=== PATIENT | female | born 1940 | race Caucasian/White ===

== ENCOUNTER 2017-04-26 23:03 | Observation (INO) | payer MEDICARE ==
[2017-04-27] MEDS ORDERED: INSULIN GLARGINE,HUM.REC.ANLOG 1,000 UNIT/10 ML UNIT SUBCUT ONE (00:42)
[2017-04-27] MEDS ORDERED: INSULIN REG, HUMAN 100 UNIT/ML 3 ML VIAL (PYX) IV ONE (00:42)
[2017-04-27] MEDS ORDERED: NORMAL SALINE 1000 ML 1,000 ML IV ONE ×2 (00:44→03:38)
--- NOTE | 2017-04-27 01:08 | ER Document Report ---
ED General - General Chief Complaint: Hip Injury Stated Complaint: FALL/HIP PAIN Time Seen by Provider: 04/27/17 00:25 Mode of Arrival: Medic Information source: Patient TRAVEL OUTSIDE OF THE [place] IN LAST 30 DAYS: No - HPI Notes: Patient is a pleasant 77-year-old white female history of chronic atrial fibrillation on Coumadin presents emergency department with report that she has a history of vertigo and gets dizzy when she stands at times, but this time she stood up holding her dog felt dizzy and then fell over injuring her right hip and left knee where she has contusions over both. The patient denies any focal weakness or numbness. The patient reports no headache or head injury or neck pain or significant back pain. The patient reports no chest pain or difficulty breathing. No other musculoskeletal injury. No recent medication changes. The patient is a insulin-dependent diabetic, but frequently does not take her NovoLog insulin or check her blood sugars. Blood sugar was 508 today. - Related Data Allergies/Adverse Reactions: No Known Allergies Allergy (Verified 09/07/14 07:00) Past Medical History - General Information source: Patient - Social History Smoking Status: Never Smoker Frequency of alcohol use: None Drug Abuse: None Lives with: Alone Family History: Reviewed & Not Pertinent - Past Medical History Cardiac Medical History: Reports: Hx Atrial Fibrillation Endocrine Medical History: Reports: Hx Diabetes Mellitus Type 1 Review of Systems - Review of Systems Notes: REVIEW OF SYSTEMS: CONSTITUTIONAL : Denies fever, chills, or sweats. Denies recent illness. EENT: Denies eye, ear, throat, or mouth pain or symptoms. Denies nasal or sinus congestion or discharge. Denies throat, tongue, or mouth swelling or difficulty swallowing. CARDIOVASCULAR: Denies chest pain. Denies palpitations or racing or irregular heart beat. Denies ankle edema. RESPIRATORY: Denies cough, cold, or chest congestion. Denies shortness of breath, difficulty breathing, or wheezing. GASTROINTESTINAL: Denies abdominal pain or distention. Denies nausea, vomiting , or diarrhea. Denies blood in vomitus, stools, or per rectum. Denies black, tarry stools. Denies constipation. GENITOURINARY: Denies difficulty urinating, painful urination, burning, frequency, blood in urine, or discharge. FEMALE GENITOURINARY: Denies vaginal bleeding, heavy or abnormal periods, irregular periods. Denies vaginal discharge or odor. MUSCULOSKELETAL: Denies back or neck pain or stiffness. SKIN: Denies rash, lesions or sores. HEMATOLOGIC : Reports easy bruising chronically. LYMPHATIC: Denies swollen, enlarged glands. NEUROLOGICAL: Denies confusion or altered mental status. Denies passing out or loss of consciousness. Reports occasional episodes of denies dizziness or lightheadedness. Denies headache. Denies weakness or paralysis or loss of use of either side. Reports occasional difficulty with gait. Denies sensory loss, numbness, or tingling. Denies seizures. PSYCHIATRIC: Denies anxiety or stress. Denies depression, suicidal ideation, or homicidal ideation. ALL OTHER SYSTEMS REVIEWED AND NEGATIVE. Dictation was performed using [employer] voice recognition software Physical Exam - Vital signs Vitals: Temp Pulse Resp BP Pulse Ox 98.0 F 85 16 129/55 H 95 04/27/17 00:20 04/27/17 00:20 04/27/17 00:20 04/27/17 00:20 04/27/17 00:20 - Notes Notes: PHYSICAL EXAMINATION: GENERAL: Well-appearing, well-nourished and in no acute distress. HEAD: Atraumatic, normocephalic. EYES: Pupils equal round and reactive to light, extraocular movements intact, conjunctiva are normal. ENT: Nares patent, oropharynx clear without exudates. Moist mucous membranes. NECK: Normal range of motion, supple without lymphadenopathy. No carotid bruits. LUNGS: Breath sounds clear to auscultation bilaterally and equal. No wheezes rales or rhonchi. HEART: Regular rate, irregular rate consistent with chronic atrial fibrillation , rate 90 with 1/6 systolic ejection murmur best auscultated over the apex. ABDOMEN: Soft, nontender, nondistended abdomen. No guarding, no rebound. No masses appreciated. Patient does have contusions to the abdomen from insulin shots previously. No evidence for cellulitis. Female : deferred Musculoskeletal: Normal range of motion. No cyanosis. Trace bilateral lower extremity edema. Patient has pain and contusion 5 x 8 cm noted on the right posterior hip but has a good range of motion and is distally neurovascularly intact. Patient has a contusion along the medial left distal knee, but has a good range of motion and ligamentous structures are intact. Distally she has good sensation and capillary refill and pulses. NEUROLOGICAL: Cranial nerves grossly intact. Normal speech, normal gait. Normal sensory, motor exams PSYCH: Normal mood, normal affect. SKIN: Warm, Dry, normal turgor, no rashes or lesions noted. Course - Re-evaluation Re-evalutation: 04/27/17 01:21 Ice pack placed upon the patient's right posterior hip region. Patient was given 10 units of IV regular insulin and her regular dose of Lantus 50 units that she takes in the evening. Patient was offered medication for pain but she politely refused. She had previously received 4 of Zofran and 25 mcg of fentanyl while in route to the emergency department. Patient and her family were counseled at length about the need to take her insulin regularly and monitor blood sugars closely. 04/27/17 07:10 Patient was given 2 L of normal saline to correct her dehydration and mild acidosis. Blood pressure remained stable, and patient requested to go home. Patient was advised she needed to stay. Patient had orthostatics which showed a diastolic drop of almost 20 points although the systolic remained stable in the pulse did not have significant change. Patient was observed going in and out of atrial fibrillation but her heart rate would not go over 110 when she was in atrial fibrillation and the blood pressure remained stable. After patient's attempted ambulating she felt lightheaded and finally agreed to admission. Patient did not have significant difficulty ambulating regarding her joint contusions. 04/27/17 07:11 Urine culture taken. Patient given 1 dose of Keflex for possible urinary tract infection. Repeat exam showed the hematoma on the right lateral hip region had only gotten slightly larger. Discussion was undertaken with Dr. Paniagua who accepted the patient for admission to observation status. 04/27/17 07:12 No evidence suggestive for anemia or significant renal insufficiency. It is thought that if the patient was compliant with her regular insulin dosing and blood sugar management, that would help to prevent the dehydration which appears to have led to her orthostatic intolerance. No evidence for sepsis or SIRS or suggestion for CVA, and I do question the patient's report of a vertigo history. 04/27/17 07:15 - Vital Signs Vital signs: Temp Pulse Resp BP Pulse Ox 98.0 F 85 15 125/81 96 04/27/17 00:20 04/27/17 00:20 04/27/17 06:00 04/27/17 05:01 04/27/17 06:01 - Laboratory Result Diagrams: 04/27/17 00:56 04/27/17 00:56 Laboratory results interpreted by me: 04/27/17 04/27/17 04/27/17 00:56 00:56 00:56 WBC 11.8 H Plt Count 107 L PT 31.4 H Carbon Dioxide 19 L Glucose 434 H* POC Glucose Magnesium 1.5 L Direct Bilirubin 0.6 H AST 76 H ALT 58 H Albumin 3.4 L Urine Glucose (UA) Urine Ketones Urine Blood Ur Leukocyte Esterase 04/27/17 04/27/17 04/27/17 02:50 03:09 05:51 WBC Plt Count PT Carbon Dioxide Glucose POC Glucose 306 H 253 H Magnesium Direct Bilirubin AST ALT Albumin Urine Glucose (UA) >=1000 H Urine Ketones 25 H Urine Blood SMALL H Ur Leukocyte Esterase TRACE H - EKG Interpretation by Me EKG shows normal: Sinus rhythm Additional EKG results interpreted by me: 04/27/17 02:06 EKG as interpreted by me showed normal sinus rhythm heart rate of 91 no gross evidence for acute IL or ischemia identified. There is no significant change from previous EKG reviewed from 06/18/15. Critical Care Note - Critical Care Note Total time excluding time spent on procedures (mins): 46 Discharge - Discharge Clinical Impression: Near syncope, Dehydration, Medical non-compliance, Hyperglycemia Urinary tract infection Qualifiers: Urinary tract infection type: site unspecified Hematuria presence: without hematuria Qualified Code(s): N39.0 - Urinary tract infection, site not specified Contusion Qualifiers: Encounter type: initial encounter Contusion area: hip Laterality: right Qualified Code(s): S70.01XA - Contusion of right hip, initial encounter Clinical Impression: (Ruled Out): Diabetic ketoacidosis Condition: Stable Disposition: ADMITTED OBSERVATION Admitting Provider: Hospitalist Unit Admitted: Telemetry
[2017-04-27 01:18] LABS: ABSOLUTE BASOPHILS # (AUTO) 0.1 10^3/uL (0.0-0.2); ABSOLUTE EOSINOPHILS # (AUTO) 0.2 10^3/uL (0.0-0.6); ABSOLUTE LYMPHOCYTES (AUTO) 2.7 10^3/uL (0.5-4.7); ABSOLUTE MONOCYTES (AUTO) 1.2 10^3/uL (0.1-1.4); ABSOLUTE NEUT (AUTO) 7.7 10^3/uL (1.7-8.2); BASOPHILS % (AUTO) 0.7 % (0-2); EOSINOPHILS % (AUTO) 1.3 % (0-6); HEMATOCRIT 40.2 % (36.0-47.0); HEMOGLOBIN 13.2 g/dL (12.0-15.5); HGB HCT DIFFERENCE -0.6; LYMPHOCYTES % (AUTO) 22.5 % (13-45); MEAN CORPUSCULAR HEMOGLOBIN 30.9 pg (27.0-33.4); MEAN CORPUSCULAR HGB CONC 32.9 g/dL (32.0-36.0); MEAN CORPUSCULAR VOLUME 94 fl (80-97); MONOCYTES % (AUTO) 10.5 % (3-13); PROTHROMBIN TIME 31.4 SEC (11.4-15.4); RED BLOOD COUNT 4.28 10^6/uL (3.72-5.28); RED CELL DISTRIBUTION WIDTH 12.7 % (11.5-14.0); WHITE BLOOD COUNT 11.8 10^3/uL (4.0-10.5)
[2017-04-27 01:46] LABS: ALANINE AMINOTRANSFERASE 58 U/L (9-52); ALBUMIN 3.4 g/dL (3.5-5.0); ALKALINE PHOSPHATASE 118 U/L (38-126); ANION GAP 17 (5-19); ASPARTATE AMINO TRANSFERASE 76 U/L (14-36); BILIRUBIN,DIRECT 0.6 mg/dL (0.0-0.4); BILIRUBIN,TOTAL 0.7 mg/dL (0.2-1.3); BLOOD UREA NITROGEN 16 mg/dL (7-20); CALCIUM 8.5 mg/dL (8.4-10.2); CARBON DIOXIDE 19 mmol/L (22-30); CHLORIDE 101 mmol/L (98-107); DIGOXIN 1.08 ng/mL (0.8-2.0); MAGNESIUM 1.5 mg/dL (1.6-2.3); TOTAL PROTEIN 6.6 g/dL (6.3-8.2)
[2017-04-27 01:51] LABS: GLUCOSE 434 mg/dL (75-110)
--- NOTE | 2017-04-27 02:02 | RADIOLOGY REPORT (SQ) ---
EXAM DESCRIPTION: HIP RIGHT AP/LATERAL COMPLETED DATE/TIME: 04/27/2017 1:52 am REASON FOR STUDY: fall with pain COMPARISON: None. NUMBER OF VIEWS: Two views. TECHNIQUE: AP pelvis and additional frog-leg view of the right hip. LIMITATIONS: None. FINDINGS: MINERALIZATION: Normal. RIGHT HIP: No fracture or dislocation. No worrisome bone lesions. Mild primary osteoarthritis. LEFT HIP: No fracture or dislocation. No worrisome bone lesions. Mild primary osteoarthritis. PUBIS AND ISCHIUM: No fracture. PELVIS: No fracture. SACRUM: No fracture or dislocation. No worrisome bone lesions. LOWER LUMBAR SPINE: Vpyl-ag-[id number] disc desiccation and spondylosis. SOFT TISSUES: No findings. OTHER: No other significant finding. IMPRESSION: No acute defect. [id number]-tr-[id number] osteoarthritis. TECHNICAL DOCUMENTATION: JOB ID: [id number] [employer]- All Rights Reserved
--- NOTE | 2017-04-27 02:03 | RADIOLOGY REPORT (SQ) ---
EXAM DESCRIPTION: KNEE LEFT 2 VIEWS COMPLETED DATE/TIME: 04/27/2017 1:52 am REASON FOR STUDY: fall with pain COMPARISON: None. NUMBER OF VIEWS: Two views. TECHNIQUE: AP and lateral radiographic images acquired of the left knee. LIMITATIONS: None. FINDINGS: MINERALIZATION: Normal. BONES: Mild osteoarthritis of the medial compartment. Small hypertrophy of the tibial spines. Small superior patellar enthesophyte. JOINT: No effusion. SOFT TISSUES: No soft tissue swelling. No radio-opaque foreign body. OTHER: Atherosclerosis. IMPRESSION: NO RADIOGRAPHIC EVIDENCE OF ACUTE INJURY. TECHNICAL DOCUMENTATION: JOB ID: [id number]- All Rights Reserved
[2017-04-27 03:37] LABS: APPEARANCE,URINE CLEAR
[2017-04-27 03:38] LABS: BILIRUBIN,URINE NEGATIVE (NEGATIVE); GLUCOSE, URINE >=1000 mg/dL (NEGATIVE); KETONES,URINE 25 mg/dL (NEGATIVE); LEUKOCYTE ESTERASE,URINE TRACE (NEGATIVE); NITRITE,URINE NEGATIVE (NEGATIVE); PROTEIN,URINE NEGATIVE (NEGATIVE); URINE SPECIFIC GRAVITY 1.022; UROBILINOGEN,URINE NEGATIVE mg/dL (<2.0)
[2017-04-27 03:40] LABS: BACTERIA,URINE TRACE /HPF
[2017-04-27] MEDS ORDERED: CEPHALEXIN 500 MG CAPSULE PO ONE (04:57)
[2017-04-27] MEDS ORDERED: MAGNESIUM HYDROXIDE SUSP 30 ML UDCUP PO PRN (06:15)
[2017-04-27] MEDS ORDERED: IPRATROPIUM/ALBUTEROL 0.5-2.5 MG/3 ML AMPUL NEB PRN (06:15)
[2017-04-27] MEDS ORDERED: NORMAL SALINE 1000 ML 1,000 ML IV SCH (06:15)
[2017-04-27] MEDS ORDERED: GLUCAGON,HUMAN RECOMB 1 MG INJ IM PRN (06:19)
[2017-04-27] MEDS ORDERED: DEXTROSE 50%-WATER 25 GM/50 ML DISP.SYRIN IV PRN ×2 (06:19)
[2017-04-27] MEDS ORDERED: DEXTROSE 40% GEL 15 GM TUBE PO PRN ×2 (06:19)
--- NOTE | 2017-04-27 07:25 | PDOC H&P ---
History of Present Illness Admission Date/PCP: 04/27/17 06:15 Patient complains of: Dizziness with fall History of Present Illness: MITRA COX is a 77 year old female with a past medical history of atrial fibrillation on Coumadin, insulin-dependent diabetes and dyslipidemia who was in her usual state of health until last 3 days having episodes of dizziness upon standing. She denies palpitations or tachycardia but does not regularly check her blood pressure or blood sugar. She denies recent changes in her medications or running out she denies chest pain nausea vomiting or shortness of breath. In the emergency room she is found to have A. fib with RVR in the 120s, a large right thigh hematoma, Diabetic ketoacidosis And persistent orthostatic hypotension and referred to the hospitalist for admission. Past Medical History Cardiac Medical History: Reports: Atrial Fibrillation, Hyperlipidema, Hypertension Endocrine Medical History: Reports: Diabetes Mellitus Type 1 Social History Information Source: Patient Lives with: Alone Smoking Status: Never Smoker Drugs: None - Advance Directive Resuscitation Status: Full Code Family History Family History: Hypertension Parental Family History Reviewed: Yes Children Family History Reviewed: Yes Sibling(s) Family History Reviewed.: Yes Medication/Allergy Home Medications: Digoxin [Lanoxin 0.125 mg Tablet] 0.125 mg PO DAILY 09/07/14 Diltiazem HCl [Diltiazem 24Hr Cd] 180 mg PO DAILY 09/07/14 Insulin Detemir [Levemir Insulin 100 units/mL] 50 unit SUBCUT QHS 09/07/14 Insulin Regular, Human [Humulin R (Reg) Insulin 100 unit/mL] 0 unit SUBCUT .SLD SCALE 09/07/14 Meclizine HCl [Antivert 25 mg Tablet] 25 mg PO TID PRN #21 tablet 09/07/14 Ondansetron [Zofran Odt 4 mg Tablet] 1 tab PO Q6H #15 tab.rapdis 09/07/14 Simvastatin 20 mg PO QHS 09/07/14 Warfarin Sodium 2 mg PO ASDIR 09/07/14 Warfarin Sodium 4 mg PO ASDIR 09/07/14 Cephalexin Monohydrate [Keflex 500 mg Capsule] 500 mg PO QID #20 capsule Allergies/Adverse Reactions: No Known Allergies Allergy (Verified 09/07/14 07:00) Review of Systems Constitutional: PRESENT: fatigue, weakness. ABSENT: anorexia, fever(s), headache(s), night sweats Eyes: ABSENT: visual disturbances Ears: ABSENT: hearing changes Cardiovascular: ABSENT: chest pain, dyspnea on exertion, edema, orthropnea, palpitations Respiratory: ABSENT: cough, hemoptysis Gastrointestinal: ABSENT: abdominal pain, constipation, diarrhea, hematemesis, hematochezia, nausea, vomiting Genitourinary: ABSENT: dysuria, hematuria Musculoskeletal: ABSENT: joint swelling Integumentary: ABSENT: rash, wounds Neurological: ABSENT: abnormal gait, abnormal speech, confusion, dizziness, focal weakness, syncope Psychiatric: PRESENT: as per HPI Endocrine: PRESENT: polydipsia, polyuria Hematologic/Lymphatic: ABSENT: easy bleeding, easy bruising Physical Exam Vital Signs: Temp Pulse Resp BP Pulse Ox 98.0 F 85 15 125/81 96 04/27/17 00:20 04/27/17 00:20 04/27/17 06:00 04/27/17 05:01 04/27/17 06:01 General appearance: PRESENT: no acute distress, cooperative, well-developed, well-nourished Head exam: PRESENT: atraumatic, normocephalic Eye exam: PRESENT: conjunctiva pink, EOMI, PERRLA. ABSENT: scleral icterus Ear exam: PRESENT: normal external ear exam Mouth exam: PRESENT: moist, tongue midline Neck exam: ABSENT: carotid bruit, JVD, lymphadenopathy, thyromegaly Respiratory exam: PRESENT: clear to auscultation gaston. ABSENT: rales, rhonchi, wheezes Cardiovascular exam: PRESENT: irregular rhythm, +S1, +S2 Pulses: PRESENT: normal dorsalis pedis pul Vascular exam: PRESENT: normal capillary refill GI/Abdominal exam: PRESENT: normal bowel sounds, soft. ABSENT: distended, guarding, mass, organolmegaly, rebound, tenderness Rectal exam: PRESENT: deferred Extremities exam: PRESENT: full ROM, other - Large 20 x 24 cm hematoma to the upper lateral right thigh. ABSENT: calf tenderness, clubbing, pedal edema Neurological exam: PRESENT: alert, awake, oriented to person, oriented to place , oriented to time, oriented to situation, CN II-XII grossly intact. ABSENT: motor sensory deficit Psychiatric exam: PRESENT: appropriate affect, normal mood. ABSENT: homicidal ideation, suicidal ideation Skin exam: PRESENT: dry, intact, warm. ABSENT: cyanosis, rash Results Impressions: Hip/Pelvis X-Ray 04/27/17 00:43 IMPRESSION: No acute defect. Vprq-xw-luanggto osteoarthritis. Knee X-Ray 04/27/17 00:43 IMPRESSION: NO RADIOGRAPHIC EVIDENCE OF ACUTE INJURY. Assessment & Plan - Diagnosis (1) Afib Qualifiers: Atrial fibrillation type: paroxysmal Qualified Code(s): I48.0 - Paroxysmal atrial fibrillation Is this a current diagnosis for this admission?: YesPlan: Chronic problem uncontrolled likely contributing to fall continue Coumadin optimize diltiazem reevaluation of orthostasis. (2) DKA (diabetic ketoacidoses) Is this a current diagnosis for this admission?: YesPlan: Complicated by unclear compliance obtain glycosylated hemoglobin, chemistry every 6 hours home regiment insulin with sliding scale and education (3) Orthostasis Is this a current diagnosis for this admission?: YesPlan: Likely secondary to atrial fibrillation, optimize heart rate and reevaluate orthostatic blood pressures every 4 hours with physical therapy evaluation (4) Contusion Qualifiers: Encounter type: initial encounter Contusion area: hip Laterality: right Qualified Code(s): S70.01XA - Contusion of right hip, initial encounter Is this a current diagnosis for this admission?: YesPlan: Large right upper lateral thigh hematoma complicated by anticoagulation and orthostasis. Monitor for fever or compartment syndrome otherwise symptomatic management. - Time Time Spent: 50 to 70 Minutes
[2017-04-27 07:29] LABS: ANION GAP 11 (5-19); BLOOD UREA NITROGEN 13 mg/dL (7-20); CARBON DIOXIDE 26 mmol/L (22-30); CHLORIDE 104 mmol/L (98-107); CREATININE RESULT 0.75 mg/dL (0.52-1.25); GLUCOSE 259 mg/dL (75-110); MAGNESIUM 1.4 mg/dL (1.6-2.3); POTASSIUM 4.2 mmol/L (3.6-5.0)
[2017-04-27] MEDS ORDERED: DILTIAZEM HCL 60 MG TABLET PO ONE (08:30)
[2017-04-27] MEDS: ACETAMINOPHEN 325 MG TABLET PO PRN (08:43)
[2017-04-27] MEDS: DILTIAZEM HCL 180 MG CAPSULE.CR PO SCH (09:34)
[2017-04-27] MEDS: DOCUSATE SODIUM 100 MG CAPSULE PO SCH ×2 (10:00→17:08)
[2017-04-27] MEDS ORDERED: (PENDING PHARMACY ID) (Diltiazem Hcl [Diltiazem 24hr Cd] 180 MG) PO SCH (10:00)
--- NOTE | 2017-04-27 11:01 | EKG REPORT ---
SEVERITY:- ABNORMAL ECG - SINUS RHYTHM PROBABLE LVH WITH SECONDARY REPOL ABNRM : Confirmed by: Linda Momin MD 27-Apr-2017 11:00:25
[2017-04-27] MEDS: INSULIN LISPRO 100 UNIT/ML 3 ML VIAL SUBCUT PRN ×2 (11:34→16:22)
--- NOTE | 2017-04-27 13:30 | PDOC PROGRESS REPORT ---
Subjective Progress Note for:: 04/27/17 Subjective:: This is a follow-up visit for Lionel varghese with RVR. Patient was admitted early this morning by my partner please see his note for details. The patient says she has not slept yet because she is just getting to her room. She has no chest pain or shortness of breath. She has some soreness over the right hip where she fell and injured herself. Physical Exam Vital Signs: Temp Pulse Resp BP Pulse Ox 98.3 F 77 16 132/52 H 95 04/27/17 11:19 04/27/17 11:19 04/27/17 11:19 04/27/17 11:19 04/27/17 11:19 Intake & Output 04/26/17 04/27/17 04/28/17 06:59 06:59 06:59 Weight 63.503 kg Physical exam: General: This is a well-developed well-nourished appearing white female resting in bed currently in no acute distress Heart: Regular rate and rhythm 2/6 systolic ejection murmur best heard over the left upper sternal border. No rubs or gallops Lungs: Clear to auscultation bilaterally with equal rise and fall of chest Extremities: Clubbing cyanosis or edema. Skin: Has a large hematoma on the right hip. Ecchymosis is present. Results Laboratory Results: 04/27/17 06:58 04/27/17 06:58 Sodium 141.0 Potassium 4.2 Chloride 104 Carbon Dioxide 26 Anion Gap 11 BUN 13 Creatinine 0.75 Est GFR ( Amer) > 60 Est GFR (Non-Af Amer) > 60 Glucose 259 H Calcium 8.0 L Magnesium 1.4 L Impressions: Hip/Pelvis X-Ray 04/27/17 00:43 IMPRESSION: No acute defect. Gmqm-ha-lpdumfos osteoarthritis. Knee X-Ray 04/27/17 00:43 IMPRESSION: NO RADIOGRAPHIC EVIDENCE OF ACUTE INJURY. Assessment & Plan - Diagnosis (1) Diabetes Plan: Controlled diabetes mellitus. Hemoglobin A1c is 12. His current regimen for now. We will wait 24 hours obtain multiple data points before we adjust her insulin. (2) Fall Plan: States that she became dizzy and fell. She did not trip over anything. Physical therapy to evaluate (3) Afib Qualifiers: Atrial fibrillation type: paroxysmal Qualified Code(s): I48.0 - Paroxysmal atrial fibrillation Is this a current diagnosis for this admission?: YesPlan: Currently under control. The patient had RVR on admission. (4) Orthostasis Is this a current diagnosis for this admission?: YesPlan: Resolved (5) Hematoma Plan: This is due to injury from fall. Symptomatic treatment. - Time Time Spent with patient: 15-24 minutes - Inpatient Certification Medical Necessity: Need Close Monitoring Due to Risk of Patient Decompensation
[2017-04-27] MEDS ORDERED: INSULIN DETEMIR 100 UNIT/ML 3 ML PEN SUBCUT SCH (22:00)
[2017-04-28 06:26] LABS: ABSOLUTE EOSINOPHILS # (AUTO) 0.2 10^3/uL (0.0-0.6); ABSOLUTE LYMPHOCYTES (AUTO) 3.8 10^3/uL (0.5-4.7); ABSOLUTE NEUT (AUTO) 4.1 10^3/uL (1.7-8.2); BASOPHILS % (AUTO) 0.5 % (0-2); EOSINOPHILS % (AUTO) 2.6 % (0-6); HEMATOCRIT 32.6 % (36.0-47.0); HGB HCT DIFFERENCE 0.4; LYMPHOCYTES % (AUTO) 41.5 % (13-45); MEAN CORPUSCULAR HEMOGLOBIN 31.5 pg (27.0-33.4); MEAN CORPUSCULAR HGB CONC 33.8 g/dL (32.0-36.0); MEAN CORPUSCULAR VOLUME 93 fl (80-97); MONOCYTES % (AUTO) 10.8 % (3-13); RED BLOOD COUNT 3.51 10^6/uL (3.72-5.28); RED CELL DISTRIBUTION WIDTH 12.8 % (11.5-14.0); SEGMENTED NEUTROPHILS % (AUTO) 44.6 % (42-78); WHITE BLOOD COUNT 9.1 10^3/uL (4.0-10.5)
[2017-04-28] MEDS: INSULIN LISPRO 100 UNIT/ML 3 ML VIAL SUBCUT PRN ×3 (08:23→17:13)
[2017-04-28] MEDS: ACETAMINOPHEN 325 MG TABLET PO PRN ×3 (08:23→22:54)
[2017-04-28] MEDS: INSULIN REG, HUMAN 100 UNIT/ML 3 ML VIAL (PYX) SUBCUT SCH ×3 (10:22→17:13)
[2017-04-28] MEDS: DILTIAZEM HCL 180 MG CAPSULE.CR PO SCH (10:35)
[2017-04-28] MEDS: DOCUSATE SODIUM 100 MG CAPSULE PO SCH ×2 (10:43→17:13)
[2017-04-28] MEDS ORDERED: (PENDING PHARMACY ID) (Diltiazem Hcl [Diltiazem 24hr Cd] 180 MG) PO SCH (12:45)
--- NOTE | 2017-04-28 12:50 | PDOC DISCHARGE SUMMARY ---
General - Admit/Disc Date/PCP Admission Date/Primary Care Provider: 04/27/17 06:15 Discharge Date: 04/28/17 - Discharge Diagnosis (1) Diabetes Summary: Uncontrolled diabetes mellitus. The patient did not have DKA. Patient's insulin was adjusted so that her subcu nightly insulin is now 55 units and 5 units of mealtime insulin were added on current regimen. She is to follow-up with her primary care physician. (2) Fall Summary: Possibly due transient uncontrolled atrial fibrillation versus medications. While she was here in the hospital, her heart rate was controlled and she experienced no adverse effects with resumption of her usual medications. She ambulated with PT and was not dizzy or SOB. FU with pcp. (3) Afib Is this a current diagnosis for this admission?: YesSummary: Controlled now. Continue home medications (4) Orthostasis Is this a current diagnosis for this admission?: YesSummary: Resolved. (5) Hematoma Summary: Supportive of care. Continue tylenol for discomfort (6) Urinary tract infection Summary: Culture with multiple jordan. Not a good specimen. The patient neither clinically nor objectively had a UTI. - Additional Information Resuscitation Status: Full Code Home Medications: Citalopram Hydrobromide [Celexa 20 mg Tablet] 20 mg PO DAILY 04/27/17 Digoxin [Lanoxin 0.125 mg Tablet] 0.125 mg PO DAILY 04/27/17 Diltiazem HCl [Diltiazem 24Hr Cd] 180 mg PO DAILY 04/27/17 Ergocalciferol (Vitamin D2) [Vitamin D2] 50,000 unit PO HATHAWAY@1000 04/27/17 Levothyroxine Sodium [Synthroid 0.05 mg Tablet] 0.05 mg PO [id number] 04/27/17 Metformin HCl [Glucophage] 500 mg PO BID 04/27/17 Ranitidine HCl [Zantac 150 mg Tablet] 150 mg PO BID 04/27/17 Simvastatin [Zocor 20 mg Tablet] 20 mg PO QHS 04/27/17 Warfarin Sodium [Coumadin 4 mg Tablet] 2 mg PO TUTHSA@1000 04/27/17 Warfarin Sodium [Coumadin 4 mg Tablet] 4 mg PO SUMOWEFR@1000 04/27/17 Insulin Detemir [Levemir Insulin 100 units/mL] 55 unit SUBCUT QHS insuln.pen Insulin Regular, Human [Humulin R (Reg) Insulin 100 unit/mL] 5 unit SUBCUT AC unit 04/29/17 Tramadol HCl 50 mg PO Q4HP PRN #15 tablet 04/29/17 History of Present Illness History of Present Illness: HPI as per admitting physician History of Present Illness Admission Date/PCP: 04/27/17 06:15 Patient complains of: Dizziness with fall History of Present Illness: MITRA COX is a 77 year old female with a past medical history of atrial fibrillation on Coumadin, insulin-dependent diabetes and dyslipidemia who was in her usual state of health until last 3 days having episodes of dizziness upon standing. She denies palpitations or tachycardia but does not regularly check her blood pressure or blood sugar. She denies recent changes in her medications or running out she denies chest pain nausea vomiting or shortness of breath. In the emergency room she is found to have A. fib with RVR in the 120s, a large right thigh hematoma, Diabetic ketoacidosis And persistent orthostatic hypotension and referred to the hospitalist for admission. Hospital Course Hospital Course: Patient was brought into the hospital and overall did well. She complains of pain of her right hip. This was secondary to large hematoma. This morning she is doing well. No current episodes of RVR. She was off of her home medications for the first night due to suspicion of fall from medications. These were resumed after taking over her care. The patient did well and did not have any further episodes of rvr with pulses remaining in the 70/80s. She ambulated with Physical Therapy and did well without dizziness. Follow-up with her primary care physician. Physical Exam Vital Signs: Temp Pulse Resp BP Pulse Ox 98.2 F 82 17 114/48 L 96 04/28/17 07:16 04/28/17 07:16 04/28/17 07:16 04/28/17 07:16 04/28/17 07:16 Intake & Output 04/27/17 04/28/17 04/29/17 06:59 06:59 06:59 Intake Total 780 Output Total 1700 Balance -920 Weight 33.5 kg Physical exam: General: This is a well-developed well-nourished appearing white female resting in bed currently in no acute distress Heart: Regular rate and rhythm 2/6 systolic ejection murmur best heard over the left upper sternal border. No rubs or gallops Lungs: Clear to auscultation bilaterally with equal rise and fall of chest Extremities: Clubbing cyanosis or edema. Neuro: Awake and Alert Skin: Has a large hematoma on the right hip. Ecchymosis is present. Results Laboratory Results: 04/28/17 05:52 04/27/17 06:58 04/28/17 05:52 WBC 9.1 RBC 3.51 L Hgb 11.0 L D Hct 32.6 L MCV 93 MCH 31.5 MCHC 33.8 RDW 12.8 Plt Count 96 L Seg Neutrophils % 44.6 Lymphocytes % 41.5 Monocytes % 10.8 Eosinophils % 2.6 Basophils % 0.5 Absolute Neutrophils 4.1 Absolute Lymphocytes 3.8 Absolute Monocytes 1.0 Absolute Eosinophils 0.2 Absolute Basophils 0.0 Impressions: Hip/Pelvis X-Ray 04/27/17 00:43 IMPRESSION: No acute defect. Fhar-gk-qieakzeo osteoarthritis. Knee X-Ray 04/27/17 00:43 IMPRESSION: NO RADIOGRAPHIC EVIDENCE OF ACUTE INJURY. Qualifiers PATEINT BEING DISCHARGED WITH ANY OF THE FOLLOWING DIAGNOSIS?: No Plan Time Spent: Less than 30 Minutes
[2017-04-28] MEDS ORDERED: DIGOXIN 0.125 MG TABLET PO ONE (13:45)
[2017-04-28] MEDS: FAMOTIDINE 20 MG TABLET PO SCH (17:13)
[2017-04-28] MEDS: METFORMIN HCL 500 MG TABLET PO SCH (17:13)
[2017-04-28] MEDS ORDERED: (PENDING PHARMACY ID) (Ranitidine Hcl [Zantac 150 Mg Tablet] 150 MG) PO SCH (18:00)
[2017-04-28] MEDS ORDERED: SIMVASTATIN 10 MG TABLET PO SCH (22:00)
[2017-04-28] MEDS ORDERED: INSULIN DETEMIR 100 UNIT/ML 3 ML PEN SUBCUT SCH (22:00)
[2017-04-29] MEDS: ACETAMINOPHEN 325 MG TABLET PO PRN ×2 (04:52→08:58)
[2017-04-29] MEDS ORDERED: LEVOTHYROXINE SODIUM 0.05 MG TABLET PO SCH (08:00)
[2017-04-29] MEDS: INSULIN REG, HUMAN 100 UNIT/ML 3 ML VIAL (PYX) SUBCUT SCH ×2 (08:23→11:42)
[2017-04-29] MEDS: INSULIN LISPRO 100 UNIT/ML 3 ML VIAL SUBCUT PRN ×2 (08:23→11:42)
[2017-04-29] MEDS: METFORMIN HCL 500 MG TABLET PO SCH (09:02)
[2017-04-29] MEDS: FAMOTIDINE 20 MG TABLET PO SCH (09:02)
[2017-04-29] MEDS: DILTIAZEM HCL 180 MG CAPSULE.CR PO SCH (09:03)
[2017-04-29] MEDS: DOCUSATE SODIUM 100 MG CAPSULE PO SCH (09:03)
[2017-04-29] MEDS ORDERED: DILTIAZEM HCL 180 MG CAPSULE.CR PO SCH (10:00)
[2017-04-29] MEDS ORDERED: DIGOXIN 0.125 MG TABLET PO SCH (10:00)
[2017-04-29] MEDS ORDERED: CITALOPRAM HYDROBROMIDE 20 MG TABLET PO SCH (10:00)
[2017-04-29] MEDS ORDERED: TRAMADOL HCL 50 MG TABLET PO ONE (11:00)
--- NOTE | 2017-04-29 11:05 | PDOC PROGRESS REPORT ---
Subjective Progress Note for:: 04/29/17 Subjective:: This is a follow-up visit for Lionel varghese with [facility]. The patient currently has no complaints. She is ready for discharge. Please see D/C summary from yesterday for details of her stay. Physical Exam Vital Signs: Temp Pulse Resp BP Pulse Ox 98.4 F 91 16 147/62 H 98 04/29/17 08:34 04/29/17 08:34 04/29/17 08:34 04/29/17 08:34 04/29/17 08:34 Intake & Output 04/28/17 04/29/17 04/30/17 06:59 06:59 06:59 Intake Total 780 1558 100 Output Total 1700 1600 150 Balance -920 -42 -50 Weight 33.5 kg 64.3 kg Physical exam: General: This is a well-developed well-nourished appearing white female resting in bed currently in no acute distress Heart: Regular rate and rhythm 2/6 systolic ejection murmur best heard over the left upper sternal border. No rubs or gallops Lungs: Clear to auscultation bilaterally with equal rise and fall of chest Extremities: Clubbing cyanosis or edema. Neuro: Awake and Alert Results Laboratory Results: 04/28/17 05:52 04/27/17 06:58 Impressions: Hip/Pelvis X-Ray 04/27/17 00:43 IMPRESSION: No acute defect. [id number] osteoarthritis. Knee X-Ray 04/27/17 00:43 IMPRESSION: NO RADIOGRAPHIC EVIDENCE OF ACUTE INJURY. Assessment & Plan - Diagnosis (3) Afib Qualifiers: Atrial fibrillation type: paroxysmal Qualified Code(s): I48.0 - Paroxysmal atrial fibrillation Is this a current diagnosis for this admission?: Yes (4) Orthostasis Is this a current diagnosis for this admission?: Yes (6) Urinary tract infection Qualifiers: Urinary tract infection type: site unspecified Hematuria presence: without hematuria Qualified Code(s): N39.0 - Urinary tract infection, site not specified - Time Time Spent with patient: Discharge diagnoses and medications as per discharge summary done yesterday. Please see that note for details Time Spent with patient: 15-24 minutes
[2017-04-29 12:05] VITALS: BP 161/59
== END 2017-04-29 13:08 | disposition home or self-care (01) ==
LOC: ER 23:03 → EH 04-27 06:15 → UNDOADMOB 04-27 06:30 → 4S 04-27 07:59
PROVIDERS: ADMIT Internal Medicine; ATTEND Internal Medicine
DX: E10.65 Type 1 diabetes mellitus with hyperglycemia (principal); I48.2 Chronic atrial fibrillation; I95.1 Orthostatic hypotension; W19.XXXA Unspecified fall, initial encounter; S70.11XA Contusion of right thigh, initial encounter; R60.0 Localized edema; S80.02XA Contusion of left knee, initial encounter; S70.01XA Contusion of right hip, initial encounter; E86.0 Dehydration; E87.2 Acidosis; E78.5 Hyperlipidemia, unspecified; I10 Essential (primary) hypertension; Z91.14 Patient's other noncompliance with medication regimen; Z79.01 Long term (current) use of anticoagulants; Z79.4 Long term (current) use of insulin; Z79.899 Other long term (current) drug therapy; Z82.49 Family history of ischemic heart disease and other diseases of the circulatory system
CPT/HCPCS: 93005; 99285; 36415 ×2; 87086; 82962 ×3; 80162; 83735; 85025 ×2; 85610; 80048; 80053; 81001; 83036; 73502; 73560; 93010; 97163; G0378 ×4; A9270 ×28; J7030; G8978; G8979; J1815

== ENCOUNTER 2017-12-03 09:08 | Emergency (ER) | payer MEDICARE ==
--- NOTE | 2017-12-03 10:16 | ER Document Report ---
ED Medical Screen (RME) - General Chief Complaint: Flank Pain Stated Complaint: SIDE PAIN Time Seen by Provider: 12/03/17 10:12 Notes: Patient states she fell approximately 2 weeks ago and landed on her tailbone. She states approximately 1 week after that she began to have severe right sided hip pain. She states it is worse with movement. She is on a blood thinner secondary to A. fib. TRAVEL OUTSIDE OF THE [place] IN LAST 30 DAYS: No - Related Data Allergies/Adverse Reactions: No Known Allergies Allergy (Verified 09/07/14 07:00) Past Medical History - Social History Chew tobacco use (# tins/day): No Frequency of alcohol use: None Drug Abuse: None - Past Medical History Cardiac Medical History: Reports: Hx Atrial Fibrillation, Hx Hypercholesterolemia, Hx Hypertension Endocrine Medical History: Reports: Hx Diabetes Mellitus Type 1 Renal/ Medical History: Denies: Hx Peritoneal Dialysis Physical Exam - Vital signs Vitals: Temp Pulse Resp BP Pulse Ox 98.5 F 81 14 146/64 H 98 12/03/17 09:40 12/03/17 09:40 12/03/17 09:40 12/03/17 09:40 12/03/17 09:40 Course - Vital Signs Vital signs: Temp Pulse Resp BP Pulse Ox 98.5 F 81 14 146/64 H 98 12/03/17 09:40 12/03/17 09:40 12/03/17 09:40 12/03/17 09:40 12/03/17 09:40
[2017-12-03 10:43] LABS: ABSOLUTE BASOPHILS # (AUTO) 0.1 10^3/uL (0.0-0.2); ABSOLUTE EOSINOPHILS # (AUTO) 0.2 10^3/uL (0.0-0.6); ABSOLUTE LYMPHOCYTES (AUTO) 2.7 10^3/uL (0.5-4.7); ABSOLUTE MONOCYTES (AUTO) 0.9 10^3/uL (0.1-1.4); ABSOLUTE NEUT (AUTO) 5.8 10^3/uL (1.7-8.2); BASOPHILS % (AUTO) 0.7 % (0-2); EOSINOPHILS % (AUTO) 2.1 % (0-6); HEMATOCRIT 44.1 % (36.0-47.0); MEAN CORPUSCULAR HGB CONC 34.1 g/dL (32.0-36.0); MEAN CORPUSCULAR VOLUME 91 fl (80-97); PLATELET COUNT 140 10^3/uL (150-450); RED BLOOD COUNT 4.85 10^6/uL (3.72-5.28); RED CELL DISTRIBUTION WIDTH 12.1 % (11.5-14.0); SEGMENTED NEUTROPHILS % (AUTO) 60.2 % (42-78); TOTAL CELLS COUNTED % (AUTO) 100 %; WHITE BLOOD COUNT 9.7 10^3/uL (4.0-10.5)
[2017-12-03 10:50] LABS: INTERNATIONAL RATION (INR) 2.05; PROTHROMBIN TIME 24.2 SEC (11.4-15.4)
[2017-12-03 10:55] LABS: ANION GAP 15 (5-19); BLOOD UREA NITROGEN 13 mg/dL (7-20); CALCIUM 9.7 mg/dL (8.4-10.2); CARBON DIOXIDE 28 mmol/L (22-30); CHLORIDE 97 mmol/L (98-107); GLUCOSE 366 mg/dL (75-110); POTASSIUM 4.2 mmol/L (3.6-5.0); SODIUM 140.1 mmol/L (137-145)
--- NOTE | 2017-12-03 10:58 | RADIOLOGY REPORT (SQ) ---
EXAM DESCRIPTION: HIP RIGHT AP/LATERAL COMPLETED DATE/TIME: 12/03/2017 10:51 am REASON FOR STUDY: fall/pain COMPARISON: None. NUMBER OF VIEWS: Two views. TECHNIQUE: AP pelvis and additional frog-leg view of the right hip. LIMITATIONS: None. FINDINGS: MINERALIZATION: Normal. RIGHT HIP: No fracture or dislocation. No worrisome bone lesions. LEFT HIP: No fracture or dislocation. No worrisome bone lesions. PUBIS AND ISCHIUM: No fracture. PELVIS: No fracture. SACRUM: No fracture or dislocation. No worrisome bone lesions. LOWER LUMBAR SPINE: No fracture or dislocation. No worrisome bone lesions. No significant disc disea se. SOFT TISSUES: No findings. OTHER: No other significant finding. IMPRESSION: NO RADIOGRAPHIC EVIDENCE OF ACUTE INJURY. TECHNICAL DOCUMENTATION: JOB ID: [id number] [employer]- All Rights Reserved
--- NOTE | 2017-12-03 10:59 | RADIOLOGY REPORT (SQ) ---
EXAM DESCRIPTION: SACRUM AND COCCYX COMPLETED DATE/TIME: 12/03/2017 10:51 am REASON FOR STUDY: fall/pain COMPARISON: None. NUMBER OF VIEWS: Three views. TECHNIQUE: AP, lateral, and tilt views of the sacrum and coccyx. LIMITATIONS: None. FINDINGS: MINERALIZATION: Normal. BONES: No acute fracture or dislocation. No worrisome bone lesions. Partial visualization of grade 1 anterolisthesis of L4 on L5. SOFT TISSUES: No soft tissue swelling. No foreign body. OTHER: No other significant finding. IMPRESSION: NO FRACTURE OF THE SACRUM OR COCCYX. DEGENERATIVE CHANGES LUMBAR SPINE ABOVE. TECHNICAL DOCUMENTATION: JOB ID: [id number] [employer]- All Rights Reserved
[2017-12-03] MEDS ORDERED: LIDOCAINE 5% (700 MG) TRANSDERMAL ADH..PATCH TP ONE (11:21)
--- NOTE | 2017-12-03 11:28 | ER Document Report ---
ED Extremity Problem, Lower - General Chief Complaint: Flank Pain Stated Complaint: SIDE PAIN Time Seen by Provider: 12/03/17 10:12 Notes: The patient is a 77-year-old female, past medical history A. fib on Coumadin, presents after she slipped in her kitchen, fell and landed on her right hip and tailbone. She is having some pain, but is not going away. She is taking Tylenol without much relief of her symptoms. Patient said the pain is worse with movement. She denies hitting her head, change in bowel or bladder, large swelling, fevers, urinary symptoms, numbness, tingling or midline back pain. TRAVEL OUTSIDE OF THE [place] IN LAST 30 DAYS: No - Related Data Allergies/Adverse Reactions: No Known Allergies Allergy (Verified 09/07/14 07:00) Past Medical History - General Information source: Patient - Social History Smoking Status: Never Smoker Chew tobacco use (# tins/day): No Frequency of alcohol use: None Drug Abuse: None Family History: Hypertension Patient has suicidal ideation: No Patient has homicidal ideation: No - Past Medical History Cardiac Medical History: Reports: Hx Atrial Fibrillation, Hx Hypercholesterolemia, Hx Hypertension Endocrine Medical History: Reports: Hx Diabetes Mellitus Type 1 Renal/ Medical History: Denies: Hx Peritoneal Dialysis Review of Systems - Review of Systems Notes: REVIEW OF SYSTEMS: CONSTITUTIONAL: -fevers, -chills EENT: -eye pain, -difficulty swallowing, -nasal congestion CARDIOVASCULAR: -chest pain, -syncope. RESPIRATORY: -cough, -SOB GASTROINTESTINAL: -abdominal pain, -nausea, -vomiting, -diarrhea GENITOURINARY: -dysuria, -hematuria MUSCULOSKELETAL: +right hip pain, +tailbone pain, -neck pain SKIN: -rash or skin lesions. HEMATOLOGIC: -easy bruising or bleeding. LYMPHATIC: -swollen, enlarged glands. NEUROLOGICAL: -altered mental status or loss of consciousness, -headache, - neurologic symptoms PSYCHIATRIC: -anxiety, -depression. ALL OTHER SYSTEMS REVIEWED AND NEGATIVE. Physical Exam - Vital signs Vitals: Temp Pulse Resp BP Pulse Ox 98.5 F 81 14 146/64 H 98 12/03/17 09:40 12/03/17 09:40 12/03/17 09:40 12/03/17 09:40 12/03/17 09:40 - Notes Notes: PHYSICAL EXAMINATION: GENERAL: Well-appearing, well-nourished and in no acute distress. HEAD: Atraumatic, normocephalic. EYES: Pupils equal round and reactive to light, extraocular movements intact, sclera anicteric, conjunctiva are normal. ENT: nares patent, oropharynx clear without exudates. Moist mucous membranes. NECK: Normal range of motion, supple without lymphadenopathy LUNGS: Breath sounds clear to auscultation bilaterally and equal. No wheezes rales or rhonchi. HEART: Regular rate and rhythm without murmurs ABDOMEN: Soft, nontender, normoactive bowel sounds. No guarding, no rebound. No masses appreciated. EXTREMITIES: Normal range of motion, no pitting or edema. Tenderness over right lateral hip and coccyx. No ecchymosis or swelling of right hip. NEUROLOGICAL: Cranial nerves grossly intact. Normal speech, normal gait. Normal sensory and motor exams. PSYCH: Normal mood, normal affect. SKIN: Warm, Dry, normal turgor, no rashes or lesions noted. Course - Re-evaluation Re-evalutation: Patient appears well. She has tenderness over her coccyx, but her x-rays do not show any acute fractures. There are no signs of a hematoma or hemarthrosis. Blood work is unremarkable, other than hyperglycemia, which she says is normal for her. Instructed patient to use Lidoderm patches, Voltaren gel and follow-up with her primary care physician this week for a recheck of her symptoms. - Vital Signs Vital signs: Temp Pulse Resp BP Pulse Ox 98.5 F 81 14 146/64 H 98 12/03/17 09:40 12/03/17 09:40 12/03/17 09:40 12/03/17 09:40 12/03/17 09:40 - Laboratory Result Diagrams: 12/03/17 10:20 12/03/17 10:20 Laboratory results interpreted by me: 12/03/17 12/03/17 12/03/17 10:20 10:20 10:20 Plt Count 140 L PT 24.2 H Chloride 97 L Glucose 366 H - Diagnostic Test Radiology reviewed: Image reviewed, Reports reviewed Radiology results interpreted by me: Coccyx and right hip x-rays: NAD Discharge - Discharge Clinical Impression: Contusion of pelvis Qualifiers: Encounter type: initial encounter Qualified Code(s): S30.0XXA - Contusion of lower back and pelvis, initial encounter Condition: Stable Disposition: HOME, SELF-CARE Additional Instructions: Contusion Your injury has resulted in a contusion -- a crushing of the deep tissues. No injury to important structures was detected during the physician's exam. Contusions vary in the amount of pain they cause, and in the length of time required for healing. Typically, the area will become bruised, and will remain painful to touch for two or three weeks. However, most patients are back to working and playing within a few days. After the initial period of rest and cold-packs, your symptoms (together with the doctor's recommendations) will determine how rapidly you can get back to full activity. Usually this means "do what feels okay, but don't do things that hurt." If re-examination was recommended, it's important to follow up as instructed. Call the doctor or return any time if pain increases, if swelling becomes severe, if you develop numbness or weakness in an injured extremity, or if any other alarming symptoms occur. Prescriptions: Diclofenac Sodium [Voltaren] 100 gm TP Q8H PRN #100 gel..gm. PRN Reason: Lidocaine [Lidoderm 5% (700 mg) Transdermal Patch] 1 patch TP DAILY #10 adh..patch Forms: Elevated Blood Pressure
[2017-12-03 11:39] VITALS: BP 148/57
--- NOTE | 2017-12-03 17:17 | EKG REPORT ---
SEVERITY:- NORMAL ECG - SINUS RHYTHM LVH with secondary ST-T Wave changes noted : Confirmed by: Taj Mack 03-Dec-2017 17:17:21
== END 2017-12-03 11:53 | disposition home or self-care (01) ==
LOC: ER 09:08
DX: S30.0XXA Contusion of lower back and pelvis, initial encounter (principal); W01.0XXA Fall on same level from slipping, tripping and stumbling without subsequent striking against object, initial encounter; E10.65 Type 1 diabetes mellitus with hyperglycemia; I10 Essential (primary) hypertension; I48.91 Unspecified atrial fibrillation; Z79.01 Long term (current) use of anticoagulants
CPT/HCPCS: 36415; 72220; 80048; 85025; 85610; 93005; 93010; 99284

== ENCOUNTER 2018-11-03 03:41 | Emergency (ER) | payer MEDICARE ==
[2018-11-03] MEDS ORDERED: ONDANSETRON HCL INJ/PF 4 MG/2 ML SDV IV ONE ×3 (04:15→08:54)
--- NOTE | 2018-11-03 04:18 | ER Document Report ---
ED Fall <KENYA SIMONS - Last Filed: 11/03/18 05:00> - General TRAVEL OUTSIDE OF THE [place] IN LAST 30 DAYS: No <JEB BRASWELL - Last Filed: 11/03/18 07:49> - General Chief Complaint: Fall Stated Complaint: FALL Time Seen by Provider: 11/03/18 04:06 Notes: Patient is a 78-year-old female that comes to the emergency department by EMS for chief complaint of fall. Patient was at home, fell at home, called her family, family called EMS. Patient lives alone. Patient vomited in route with EMS. Unsure if patient was knocked out or not. Patient is on Coumadin, has a history of A. fib, diabetes, hypothyroidism, vertigo. Family members state that during the day she was fine, she was out about town with them and acting normally. When asked where she hurts patient states "all over". She denies chest pain, abdominal pain, or back pain when asked specifically. She denies numbness. She denies incontinence. (JEB BRASWELL) - Related data Allergies/Adverse Reactions: No Known Allergies Allergy (Verified 11/03/18 07:30) Past Medical History - General Information source: Patient, Relative, Emergency Med Personnel - Social History Smoking Status: Never Smoker Frequency of alcohol use: None Drug Abuse: None Lives with: Alone Family History: Hypertension Patient has suicidal ideation: No Patient has homicidal ideation: No - Past Medical History Cardiac Medical History: Reports: Hx Atrial Fibrillation, Hx Hypercholesterolemia, Hx Hypertension Endocrine Medical History: Reports: Hx Diabetes Mellitus Type 1 Renal/ Medical History: Denies: Hx Peritoneal Dialysis - Immunizations Immunizations up to date: Yes Hx Diphtheria, Pertussis, Tetanus Vaccination: Yes <JEB BRASWELL - Last Filed: 11/03/18 07:49> Review of Systems - Review of Systems Constitutional: No symptoms reported EENT: No symptoms reported Cardiovascular: No symptoms reported Respiratory: No symptoms reported Gastrointestinal: No symptoms reported Genitourinary: No symptoms reported Female Genitourinary: No symptoms reported Musculoskeletal: See HPI Skin: See HPI Hematologic/Lymphatic: No symptoms reported Neurological/Psychological: See HPI <JEB BRASWELL - Last Filed: 11/03/18 07:49> Physical Exam <KENYA SIMONS - Last Filed: 11/03/18 05:00> <JEB BRASWELL - Last Filed: 11/03/18 07:49> - Vital signs Vitals: Resp BP Pulse Ox 23 H 163/57 H 99 11/03/18 03:54 11/03/18 03:54 11/03/18 03:54 - Notes Notes: GENERAL: Alert but anxious. She will follow commands. HEAD: Normocephalic. Large amount of swelling to the left forehead with ecchymosis. No open wound over the head. EYES: Pupils equal, round, and reactive to light. Extraocular movements intact. ENT: Oral mucosa moist, tongue midline. Oropharynx unremarkable. Airway patent. Nares patent, no nasal septal hematoma, TM's intact. NECK: Full range of motion. Supple. Trachea midline. LUNGS: Clear to auscultation bilaterally, no wheezes, rales, or rhonchi. No respiratory distress. No tenderness over the chest wall. HEART: Regular rate and rhythm. No murmur ABDOMEN: Soft, non-tender. Non-distended. Bowel sounds present in all 4 quadrants. No signs of trauma. GENITOURINARY: No concerning external findings noted. EXTREMITIES: Moves all 4 extremities spontaneously. Ecchymosis noted over the left shoulder. Ecchymosis and small abrasion which is very superficial over the left ankle. Otherwise extremities unremarkable. Normal distal neurovascular exam. BACK: no cervical, thoracic, lumbar midline tenderness. No saddle anesthesia, normal distal neurovascular exam. NEUROLOGICAL: Alert and oriented to person and place, confused about events. Normal speech. [cranial nerves II through XII grossly intact]. PSYCH: Anxious SKIN: Warm, dry, normal turgor. No rashes or lesions noted. (JEB BRASWELL) Course - Laboratory Result Diagrams: 11/03/18 03:12 11/03/18 03:12 <KENYA SIMONS - Last Filed: 11/03/18 05:00> - Laboratory Result Diagrams: 11/03/18 03:12 11/03/18 03:12 <JBE BRASWELL - Last Filed: 11/03/18 07:49> - Re-evaluation Re-evalutation: 11/03/18 04:58 Patient initially seen by the physician's certified first assistant. He informed me the patient had a fall and the patient is on blood thinners. I reviewed the CT scan it appears patient has a subarachnoid hemorrhage versus a calcification. I have called the radiologist to asked them to read it immediately. 11/03/18 05:00 (KENYA SIMONS) 11/03/18 04:20 Patient with large left frontal hematoma, she vomited at bedside, she started babbling incoherently briefly but then returned to speaking clearly and stated that she needed to use the bathroom now. She does follow directions, she is oriented to events, place, person, family. GCS of 15. High concern for intracranial hemorrhage, sending for CAT scan now. 11/03/18 Initially concern for possible bleed versus calcification, was initiating FFP, Keppra, nicardipine drip, Dr. Simons reviewed the CAT scan, spoke with radiologist, they do not believe this is a bleed. Patient vomited again at bedside, she is more confused, she is able to tell me her location but is having trouble with other questions. She is still following commands. She is still arousable. GCS of 14. Patient became very agitated, crying, trying to get out of the bed, I did have to give her 0.5 mg of Ativan, this worked well, she is much more calm. CBC unremarkable. PT/INR shows INR of 2. Chemistry generally unremarkable, troponin is negative. EKG showing lateral inverted T waves but these are not new. Hyperglycemia without acidosis. Given insulin. Chest x-ray unremarkable. Remaining x-rays unremarkable. Updated family on the findings. Because of patient's confusion and vomiting, dizziness and falling to begin with, marked hyperglycemia, will discuss with hospitalist for admission. Suspect she is postconcussive. Discussed with Dr. Simons. 11/03/18 06:15 Patient is much more comfortable now, she is still arousable but confused. I discussed with hospitalist Dr. Newton, he will refer to day team. 11/03/18 07:[address] Haas, he does not accept, he feels patient needs to be transferred for trauma services and availability of neurosurgery. Daughter does state agreement with [facility]. I have spoken to Dr. Manzano, solutions manager for Trauma services at [facility], patient will be accepted. 11/03/18 07:48 Introduced to Carol CARTY at bedside, discussed with daughter. Patient did take her morning blood pressure dose (Cardizem). (JEB BRASWELL) - Vital Signs Vital signs: Temp Pulse Resp BP Pulse Ox 22 H 173/69 H 93 11/03/18 07:01 11/03/18 07:01 11/03/18 07:01 - Laboratory Laboratory results interpreted by me: 11/03/18 11/03/18 11/03/18 03:12 03:12 03:12 Plt Count 112 L PT 23.8 H VBG pH VBG pCO2 Glucose 451 H* POC Glucose Direct Bilirubin 0.5 H AST 93 H Alkaline Phosphatase 178 H Albumin 3.4 L Urine Protein Urine Glucose (UA) Urine Ketones Urine Blood 11/03/18 11/03/18 11/03/18 03:56 04:20 05:10 Plt Count PT VBG pH 7.48 H VBG pCO2 29.7 L Glucose POC Glucose 428 H* Direct Bilirubin AST Alkaline Phosphatase Albumin Urine Protein 30 H Urine Glucose (UA) >=500 H Urine Ketones TRACE H Urine Blood SMALL H Discharge <KENYA SIMONS - Last Filed: 11/03/18 05:00> <JEB BRAWSELL - Last Filed: 11/03/18 07:49> - Discharge Clinical Impression: Hyperglycemia Fall Qualifiers: Encounter type: initial encounter Qualified Code(s): W19.XXXA - Unspecified fall, initial encounter Head injury Qualifiers: Encounter type: initial encounter Qualified Code(s): S09.90XA - Unspecified injury of head, initial encounter Vomiting Qualifiers: Vomiting type: unspecified Vomiting Intractability: non-intractable Nausea presence: with nausea Qualified Code(s): R11.2 - Nausea with vomiting, unspecified Altered mental status Qualifiers: Altered mental status type: unspecified Qualified Code(s): R41.82 - Altered mental status, unspecified Referrals: BRICE CANNON, BILLING ASSISTANT [Primary Care Provider] - Follow up as needed
[2018-11-03 04:36] LABS: ABSOLUTE BASOPHILS # (AUTO) 0.1 10^3/uL (0.0-0.2); ABSOLUTE EOSINOPHILS # (AUTO) 0.2 10^3/uL (0.0-0.6); ABSOLUTE LYMPHOCYTES (AUTO) 1.8 10^3/uL (0.5-4.7); ABSOLUTE MONOCYTES (AUTO) 0.7 10^3/uL (0.1-1.4); ABSOLUTE NEUT (AUTO) 4.5 10^3/uL (1.7-8.2); BASOPHILS % (AUTO) 0.7 % (0-2); EOSINOPHILS % (AUTO) 2.1 % (0-6); HEMATOCRIT 39.1 % (36.0-47.0); HEMOGLOBIN 13.3 g/dL (12.0-15.5); LYMPHOCYTES % (AUTO) 25.3 % (13-45); MEAN CORPUSCULAR HEMOGLOBIN 31.4 pg (27.0-33.4); MEAN CORPUSCULAR VOLUME 92 fl (80-97); MONOCYTES % (AUTO) 10.1 % (3-13); PLATELET COUNT 112 10^3/uL (150-450); RED BLOOD COUNT 4.23 10^6/uL (3.72-5.28); RED CELL DISTRIBUTION WIDTH 12.3 % (11.5-14.0); SEGMENTED NEUTROPHILS % (AUTO) 61.8 % (42-78); TOTAL CELLS COUNTED % (AUTO) 100 %; WHITE BLOOD COUNT 7.2 10^3/uL (4.0-10.5)
[2018-11-03 04:40] LABS: INTERNATIONAL RATION (INR) 2.01; PROTHROMBIN TIME 23.8 SEC (11.4-15.4)
[2018-11-03 04:51] LABS: ALANINE AMINOTRANSFERASE 42 U/L (9-52); ALBUMIN 3.4 g/dL (3.5-5.0); ALKALINE PHOSPHATASE 178 U/L (38-126); ANION GAP 13 (5-19); ASPARTATE AMINO TRANSFERASE 93 U/L (14-36); BILIRUBIN,DIRECT 0.5 mg/dL (0.0-0.4); BILIRUBIN,TOTAL 0.8 mg/dL (0.2-1.3); BLOOD UREA NITROGEN 10 mg/dL (7-20); CALCIUM 8.9 mg/dL (8.4-10.2); CARBON DIOXIDE 25 mmol/L (22-30); CHLORIDE 100 mmol/L (98-107); POTASSIUM 3.9 mmol/L (3.6-5.0); SODIUM 137.5 mmol/L (137-145); TOTAL PROTEIN 6.7 g/dL (6.3-8.2)
[2018-11-03] MEDS ORDERED: NORMAL SALINE 250 ML IV PRN ×2 (04:51)
[2018-11-03] MEDS ORDERED: LEVETIRACETAM 1000 MG/NACL-ISO 1,000 MG/100 ML RTUPB IV ONE (04:53)
[2018-11-03] MEDS ORDERED: LORAZEPAM INJ 2 MG/1 ML VIAL IV ONE (04:55)
--- NOTE | 2018-11-03 04:55 | RADIOLOGY REPORT (SQ) ---
EXAM DESCRIPTION: CT HEAD WITHOUT IV CONTRAST COMPLETED DATE/TME: 11/03/2018 04:13 CLINICAL HISTORY: 78 years, Female, fall, head injury COMPARISON: 09/07/2014 CT brain TECHNIQUE: 192 Images stored on PACS. All CT scanners at this facility use dose modulation, iterative reconstruction, and/or weight based dosing when appropriate to reduce radiation dose to as low as reasonably achievable (ALARA). [facility]: Dose Right [facility]: CareDose [facility]: Dose Right [facility]: Teradose 4D [facility]: Smart [employer] LIMITATIONS: None. FINDINGS: The globes are intact. Left frontal scalp hematoma. No displaced or depressed skull fracture. No acute intracranial hemorrhage. Diffuse atrophy. Small vessel ischemic change. CT is limited for evaluation of acute infarct. No CT evidence for large or territorial acute infarct. Pleural-based calcifications are noted. No mass or midline shift. IMPRESSION: Left frontal scalp hematoma. Atrophy. Small vessel ischemic change. TECHNICAL DOCUMENTATION: Quality ID # [id number]: Final reports with documentation of one or more dose reduction techniques (e.g., Automated exposure control, adjustment of the mA and/or kV according to patient size, use of iterative reconstruction technique) copyright 2010 [employer]- All Rights Reserved
[2018-11-03] MEDS ORDERED: NICARDIPINE HCL RTU, ISO-OS 20 MG/200 ML RTUINJ IV PRN (04:57)
[2018-11-03 04:59] LABS: GLUCOSE 451 mg/dL (75-110)
--- NOTE | 2018-11-03 05:00 | RADIOLOGY REPORT (SQ) ---
EXAM DESCRIPTION: CT CERVICAL SPINE WITHOUT IV CONTRAST COMPLETED DATE/TME: 11/03/2018 04:13 CLINICAL HISTORY: 78 years, Female, fall, head injury COMPARISON: None. TECHNIQUE: 235 Images stored on PACS. All CT scanners at this facility use dose modulation, iterative reconstruction, and/or weight based dosing when appropriate to reduce radiation dose to as low as reasonably achievable (ALARA). [facility]: Dose Right [facility]: CareDose [facility]: Dose Right [facility]: Teradose 4D [facility]: [employer] LIMITATIONS: None. FINDINGS: Evaluation of spinal canal contents limited due to CT technique. However, vertebral body height and alignment is preserved. The atlantoaxial space is preserved. The lateral masses are not displaced. Diffuse/multilevel degenerative change throughout the cervical spine. Limited evaluation of extraspinal anatomic structures is unremarkable. IMPRESSION: No CT evidence for acute C-spine abnormality TECHNICAL DOCUMENTATION: Quality ID # [id number]: Final reports with documentation of one or more dose reduction techniques (e.g., Automated exposure control, adjustment of the mA and/or kV according to patient size, use of iterative reconstruction technique) copyright 2011 [employer]- All Rights Reserved
[2018-11-03 05:03] LABS: APPEARANCE,URINE CLEAR; BILIRUBIN,URINE NEGATIVE (NEGATIVE); COLOR,URINE STRAW; GLUCOSE, URINE >=500 mg/dL (NEGATIVE); KETONES,URINE TRACE mg/dL (NEGATIVE); LEUKOCYTE ESTERASE,URINE NEGATIVE (NEGATIVE); NITRITE,URINE NEGATIVE (NEGATIVE); PROTEIN,URINE 30 mg/dL (NEGATIVE); URINE SPECIFIC GRAVITY 1.011; UROBILINOGEN,URINE NEGATIVE mg/dL (<2.0)
--- NOTE | 2018-11-03 05:05 | RADIOLOGY REPORT (SQ) ---
EXAM DESCRIPTION: XR ANKLE 3 OR MORE VIEWS COMPLETED DATE/TME: 11/03/2018 04:16 CLINICAL HISTORY: 78 years, Female, fall, pain COMPARISON: None. NUMBER OF VIEWS: 3 TECHNIQUE: 3 view left ankle LIMITATIONS: None. FINDINGS: Osteopenia. Ankle mortise is intact. Vascular calcifications. Prominent calcaneal spurs. Negative for acute fracture or dislocation IMPRESSION: No acute osseous abnormality. Osteopenia. copyright 2010 [employer]- All Rights Reserved
[2018-11-03] MEDS ORDERED: INSULIN REG, HUMAN 100 UNIT/ML 3 ML VIAL (PYX) SUBCUT ONE (05:09)
--- NOTE | 2018-11-03 05:11 | RADIOLOGY REPORT (SQ) ---
EXAM DESCRIPTION: X-ray single view chest. CLINICAL HISTORY: 78 years Female, status post fall with weakness and lightheadedness COMPARISON: Prior two-view chest performed on 06/18/2015 TECHNIQUE: Single portable view of the chest performed on 11/03/2018 at 4:44 AM FINDINGS: The lungs are well expanded and are clear. There is no evidence of a pneumothorax. There is mild elevation of the right hemidiaphragm. The cardiac silhouette is normal in size and configuration. The mediastinal contours are normal. No acute osseous abnormality is identified. No focal soft tissue abnormalities are seen. Lines and tubes: None. IMPRESSION: No evidence of acute intrathoracic disease.
--- NOTE | 2018-11-03 05:13 | RADIOLOGY REPORT (SQ) ---
CLINICAL DATA: 78-year-old female status post fall with left shoulder pain TECHNICAL DATA: Two x-ray views of the left shoulder were performed on 11/03/2018 at 4:45 AM. The patient refused a lateral view. COMPARISONS: None FINDINGS: There is no evidence of acute fracture or dislocation. There are degenerative changes of the acromioclavicular joint and there is a very small inferior acromial spur. No lytic or sclerotic bone lesions are identified. The visualized left hemithorax is unremarkable. Bone mineralization is within normal limits. No focal soft tissue abnormalities are identified. IMPRESSION: No evidence of acute osseous injury involving the left shoulder. There are mild degenerative changes of the acromioclavicular joint.
[2018-11-03 05:28] LABS: VENOUS BLOOD BASE EXCESS -0.4 mmol/L; VENOUS BLOOD HCO3 21.8 mmol/L (20-32); VENOUS BLOOD PCO2 29.7 mmHg (35-63); VENOUS BLOOD PH 7.48 (7.30-7.42)
[2018-11-03] MEDS ORDERED: DILTIAZEM HCL 180 MG CAPSULE.CR PO ONE ×2 (07:48→09:25)
[2018-11-03] MEDS ORDERED: ONDANSETRON HCL INJ/PF 4 MG/2 ML SDV ONE (08:48)
[2018-11-03] MEDS ORDERED: METOCLOPRAMIDE HCL INJ/PF 10 MG/2 ML SDV IV ONE (09:36)
[2018-11-03 10:01] VITALS: BP 106/83
--- NOTE | 2018-11-04 00:43 | EKG REPORT ---
SEVERITY:- ABNORMAL ECG - SINUS RHYTHM PROBABLE LEFT ATRIAL ABNORMALITY REPOL ABNRM SUGGESTS ISCHEMIA, ANT-LAT LEADS : Confirmed by: Linda Momin MD 04-Nov-2018 00:42:43
== END 2018-11-03 10:08 | disposition short-term general hospital (02) ==
LOC: ER 03:41
DX: S00.83XA Contusion of other part of head, initial encounter (principal); S40.012A Contusion of left shoulder, initial encounter; S90.02XA Contusion of left ankle, initial encounter; W18.39XA Other fall on same level, initial encounter; Y92.003 Bedroom of unspecified non-institutional (private) residence as the place of occurrence of the external cause; E10.65 Type 1 diabetes mellitus with hyperglycemia; R11.2 Nausea with vomiting, unspecified; R41.0 Disorientation, unspecified; R42 Dizziness and giddiness; I10 Essential (primary) hypertension; I48.91 Unspecified atrial fibrillation; Z79.01 Long term (current) use of anticoagulants; Z79.899 Other long term (current) drug therapy
CPT/HCPCS: 93005; 96376; 99285; 51701; 96374; 96375; 36415; 82962; 85025; 85610; 80053; 81001; 84484; 82803; 73610; 71045; 73030; 70450; 72125; 93010; A9270 ×2; J2765; J2060; J2405; C1758; J1815

== ENCOUNTER 2019-10-04 19:50 | Emergency (ER) | payer MEDICARE ==
[2019-10-04 20:25] LABS: ABSOLUTE EOSINOPHILS # (AUTO) 0.1 10^3/uL (0.0-0.6); ABSOLUTE LYMPHOCYTES (AUTO) 1.5 10^3/uL (0.5-4.7); ABSOLUTE MONOCYTES (AUTO) 0.7 10^3/uL (0.1-1.4); ABSOLUTE NEUT (AUTO) 3.8 10^3/uL (1.7-8.2); BASOPHILS % (AUTO) 0.7 % (0-2); EOSINOPHILS % (AUTO) 2.1 % (0-6); HEMATOCRIT 35.9 % (36.0-47.0); HEMOGLOBIN 12.1 g/dL (12.0-15.5); MEAN CORPUSCULAR HEMOGLOBIN 31.8 pg (27.0-33.4); MEAN CORPUSCULAR HGB CONC 33.8 g/dL (32.0-36.0); MEAN CORPUSCULAR VOLUME 94 fl (80-97); MONOCYTES % (AUTO) 10.7 % (3-13); RED BLOOD COUNT 3.82 10^6/uL (3.72-5.28); SEGMENTED NEUTROPHILS % (AUTO) 61.5 % (42-78); TOTAL CELLS COUNTED % (AUTO) 100 %; WHITE BLOOD COUNT 6.1 10^3/uL (4.0-10.5)
[2019-10-04 20:29] LABS: ALBUMIN 2.8 g/dL (3.5-5.0); ALKALINE PHOSPHATASE 151 U/L (38-126); ANION GAP 14 (5-19); ASPARTATE AMINO TRANSFERASE 67 U/L (14-36); BILIRUBIN,DIRECT 0.2 mg/dL (0.0-0.4); BILIRUBIN,TOTAL 0.7 mg/dL (0.2-1.3); BLOOD UREA NITROGEN 7 mg/dL (7-20); CALCIUM 8.2 mg/dL (8.4-10.2); CARBON DIOXIDE 26 mmol/L (22-30); CHLORIDE 95 mmol/L (98-107); POTASSIUM 3.5 mmol/L (3.6-5.0); TOTAL PROTEIN 5.6 g/dL (6.3-8.2)
--- NOTE | 2019-10-04 20:29 | ER Document Report ---
ED General - General Chief Complaint: Syncope Stated Complaint: BACK PAIN Time Seen by Provider: 10/04/19 20:29 Primary Care Provider: BRICE CANNON NP [Primary Care Provider] - Follow up as needed Notes: This 79-year-old woman presents to the emergency department history of a fall at home. Apparently she was transferring from chair to the couch. During her temp the right knee gave way and the patient fell onto the floor, there was no loss of consciousness or syncope. The patient lives with her daughter who witnessed the event, EMS was called and she was transferred to the emergency department for further evaluation and treatment. Presently she denies of any symptoms while lying still. The history is complicated by a fall which occurred last week while she was at [facility], she fell in the parking lot. The daughter notes that she refused to come to the hospital at that time. And that she has favored the right lateral pelvic region since that time. She also has had some difficulty moving the right leg due to pain. Patient also complains of mid lower back pain with movement. There was no head injury and there was no loss of consciousness. TRAVEL OUTSIDE OF THE [place] IN LAST 30 DAYS: No - Related Data Allergies/Adverse Reactions: No Known Allergies Allergy (Verified 11/03/18 07:30) Home Medications: Tylenol as needed, Aspirin 81 mg daily, atorvastatin 20 mg daily, citalopram 20 mg daily, colace 100 mg BID, Gabapentin 100 mg TID, Lantus 24 units nightly, Digoxin 125 mcg daily, Levothyroxine 50 mcg daily, Metformin 500 mg BID, metoprolol 25mg BID and Ranitidine 150 mg tab BID Past Medical History - General Information source: Patient, Relative - Daughter - Social History Smoking Status: Never Smoker Chew tobacco use (# tins/day): No Drug Abuse: None Family History: Hypertension Patient has suicidal ideation: No Patient has homicidal ideation: No - Past Medical History Cardiac Medical History: Reports: Hx Atrial Fibrillation, Hx Hypercholesterolemia, Hx Hypertension Endocrine Medical History: Reports: Hx Diabetes Mellitus Type 1 Renal/ Medical History: Denies: Hx Peritoneal Dialysis - Immunizations Immunizations up to date: Yes Hx Diphtheria, Pertussis, Tetanus Vaccination: Yes Review of Systems - Review of Systems Notes: Constitutional: Negative for fever. HENT: Negative for sore throat. Eyes: Negative for visual changes. Cardiovascular: Negative for chest pain. Respiratory: Negative for shortness of breath. Gastrointestinal: Negative for abdominal pain, vomiting or diarrhea. Genitourinary: Negative for dysuria. Musculoskeletal: + Back pain, + right lateral pelvic pain. Skin: Negative for rash. Neurological: No syncope, no loss of consciousness, negative for headaches, weakness or numbness. 10 point ROS negative except as marked above and in HPI. Physical Exam - Vital signs Vitals: Resp BP Pulse Ox 16 136/109 H 92 10/04/19 19:59 10/04/19 19:59 10/04/19 19:59 - Notes Notes: PHYSICAL EXAMINATION: GENERAL: Frail elderly female in no acute distress. HEAD: Atraumatic, normocephalic. EYES: sclera anicteric, conjunctiva are normal. ENT: Moist mucous membranes. NECK: Normal range of motion LUNGS: Normal work of breathing HEART: Regular rate and rhythm no murmur gallop or rub EXTREMITIES: No signs of trauma no pitting or edema. No cyanosis. Tenderness on palpation of the pelvis right lateral aspect in the right wing of the pelvis. NEUROLOGICAL: No focal neurological deficits. Moves all extremities spontaneously and on command. BACK: Tenderness in the lumbar region of the back, no crepitus, no obvious deformity SKIN: Warm, Dry, normal turgor, no rashes or lesions noted. Course - Re-evaluation Re-evalutation: 10/04/19 21:09 Differential diagnosis Fracture, contusion, sprain sprain ligamentous injury. - Vital Signs Vital signs: Temp Pulse Resp BP Pulse Ox 98.3 F 76 19 168/76 H 94 10/04/19 20:04 10/04/19 20:04 10/04/19 21:01 10/04/19 21:01 10/04/19 21:01 - Laboratory Result Diagrams: 10/04/19 19:51 10/04/19 19:51 Laboratory results interpreted by me: 10/04/19 10/04/19 10/04/19 19:51 19:51 20:46 Hct 35.9 L Plt Count 91 L Sodium 134.6 L Potassium 3.5 L Chloride 95 L Glucose 450 H* POC Glucose Calcium 8.2 L AST 67 H Alkaline Phosphatase 151 H Total Protein 5.6 L Albumin 2.8 L Urine Protein 30 H Urine Glucose (UA) >=500 H Urine Blood SMALL H 10/04/19 22:18 Hct Plt Count Sodium Potassium Chloride Glucose POC Glucose 347 H Calcium AST Alkaline Phosphatase Total Protein Albumin Urine Protein Urine Glucose (UA) Urine Blood Discharge - Discharge Clinical Impression: Fall Pelvic fracture Qualifiers: Encounter type: initial encounter Pelvic bone location: pubis Fracture type: closed Fracture alignment: nondisplaced Laterality: right Qualified Code(s): S32.501A - Unspecified fracture of right pubis, initial encounter for closed fracture Thoracic compression fracture Qualifiers: Encounter type: initial encounter Thoracic vertebra fracture level: T12 Qualified Code(s): S22.080A - Wedge compression fracture of T11-T12 vertebra, initial encounter for closed fracture Diabetes mellitus Qualifiers: Diabetes mellitus type: type 2 Diabetes mellitus termite exterminator helper insulin use: with termite exterminator helper use Diabetes mellitus complication status: without complication Qualified Code(s): E11.9 - Type 2 diabetes mellitus without complications; Z79.4 - [facility] (current) use of insulin Condition: Good Disposition: HOME, SELF-CARE Instructions: Pelvic Fracture ([facility]) Additional Instructions: Use Tylenol for pain control every 4-6 hours as needed Use tramadol for uncontrolled pain. Referrals: BRICE CANNON, MAILING CLERK [Primary Care Provider] - Follow up as needed
[2019-10-04 20:35] LABS: GLUCOSE 450 mg/dL (75-110)
[2019-10-04 20:45] LABS: PLATELET COUNT 91 10^3/uL (150-450)
[2019-10-04 21:14] LABS: APPEARANCE,URINE CLEAR; BILIRUBIN,URINE NEGATIVE (NEGATIVE); COLOR,URINE YELLOW; GLUCOSE, URINE >=500 mg/dL (NEGATIVE); KETONES,URINE NEGATIVE (NEGATIVE); LEUKOCYTE ESTERASE,URINE NEGATIVE (NEGATIVE); NITRITE,URINE NEGATIVE (NEGATIVE); PROTEIN,URINE 30 mg/dL (NEGATIVE); URINE SPECIFIC GRAVITY 1.012; UROBILINOGEN,URINE NEGATIVE mg/dL (<2.0)
[2019-10-04] MEDS ORDERED: NORMAL SALINE 500 ML IV ONE (21:22)
[2019-10-04] MEDS ORDERED: INSULIN REG, HUMAN 100 UNIT/ML 3 ML VIAL (PYX) IV ONE (21:22)
--- NOTE | 2019-10-04 22:22 | RADIOLOGY REPORT (SQ) ---
EXAM DESCRIPTION: CT PELVIS WITHOUT IV CONTRAST COMPLETED DATE/TME: 10/04/2019 21:12 CLINICAL HISTORY: 79 years, Female, trauma COMPARISON: None. TECHNIQUE: [id number] Images stored on PACS. All CT scanners at this facility use dose modulation, iterative reconstruction, and/or weight based dosing when appropriate to reduce radiation dose to as low as reasonably achievable (ALARA). [facility]: Dose Right [facility]: CareDose [facility]: Dose Right [facility]: Teradose 4D [facility]: [employer] LIMITATIONS: None. FINDINGS: Limited evaluation of intrapelvic structures shows a large amount of stool in the colon. Atheromatous changes. Degenerative changes of the lumbar spine. Degenerative changes of the sacroiliac joints bilaterally. Comminuted, minimally displaced fracture deformity of the right superior pubic ramus. Adjacent soft tissue inflammatory changes. No other fractures. No dislocation IMPRESSION: Comminuted fracture of the right superior pubic ramus TECHNICAL DOCUMENTATION: Quality ID # [id number]: Final reports with documentation of one or more dose reduction techniques (e.g., Automated exposure control, adjustment of the mA and/or kV according to patient size, use of iterative reconstruction technique) copyright 2011 [employer]- All Rights Reserved
--- NOTE | 2019-10-04 22:25 | RADIOLOGY REPORT (SQ) ---
EXAM DESCRIPTION: [facility]: CT LUMBAR SPINE WITHOUT IV CONTRAST CLINICAL HISTORY: 79 years Female; trauma TECHNIQUE: Noncontrast lumbar spine CT with sagittal and coronal reconstructions. All CT scans at this facility use dose modulation, iterative reconstruction, and/or weight based dosing when appropriate to reduce radiation dose to as low as reasonably achievable. COMPARISON: None. FINDINGS: Numbering system is based on T12 having small ribs and L5 being somewhat transitional. T12: Acute superior plate fracture minimal loss of height. This is best seen on the coronal images, extending along the right superior corner of the vertebral body. No retropulsion or subluxation. L2-L3: Mild disc bulging. L3-L4: Mild disc bulging. L4-L5: Severe bilateral facet arthropathy. 6 mm anterior subluxation of L4 on L5. Moderate bilateral foraminal stenosis. At least mild to moderate central canal stenosis, potentially affecting L5 roots. L5-S1: No fracture or subluxation. Mild facet arthropathy. IMPRESSION: 1. Acute T12 superior endplate fracture. No subluxation or central canal compromise. 2. L4-L5 degenerative changes with potentially significant central and foraminal stenosis
[2019-10-05 00:19] VITALS: BP 148/65
--- NOTE | 2019-10-05 01:13 | EKG REPORT ---
SEVERITY:- ABNORMAL ECG - SINUS OR ECTOPIC ATRIAL RHYTHM PROBABLE LVH WITH SECONDARY REPOL ABNRM : Confirmed by: Linda Momin MD 05-Oct-2019 01:12:56
== END 2019-10-05 00:30 | disposition home or self-care (01) ==
LOC: ER 19:50
DX: S32.501A Unspecified fracture of right pubis, initial encounter for closed fracture (principal); S22.080A Wedge compression fracture of T11-T12 vertebra, initial encounter for closed fracture; E11.9 Type 2 diabetes mellitus without complications; R55 Syncope and collapse; M54.9 Dorsalgia, unspecified; M79.604 Pain in right leg; W07.XXXA Fall from chair, initial encounter; Y92.009 Unspecified place in unspecified non-institutional (private) residence as the place of occurrence of the external cause; M54.5 Low back pain; Z79.899 Other long term (current) drug therapy; Z79.82 Long term (current) use of aspirin; Z79.4 Long term (current) use of insulin; Z79.84 Long term (current) use of oral hypoglycemic drugs; I48.91 Unspecified atrial fibrillation; I10 Essential (primary) hypertension
CPT/HCPCS: 93005; 36415; 82962; 82550; 85025; 80053; 81001; 84484; 72131; 72192; 93010; A9270; J7040; 96360; 99284; J1815